=== PATIENT | male | born 1960 | race Caucasian/White ===

== ENCOUNTER 2021-08-07 03:55 | Emergency (ER) | payer MEDICAID ==
[2021-08-07 04:14] LABS: BASOPHIL 0.3 % (0-2); EOSINOPHIL 0.1 % (0-5); HCT 34.7 % (42.0-52.0); HGB 12.2 g/dl (13.2-18.0); LYMPHOCYTE 14.4 % (15-48); MCH 31.9 pg (25.0-31.0); MCHC 35.2 g/dL (32.0-36.0); MCV 90.8 fL (78.0-100.0); MONOCYTE 9.5 % (0-12); MPV 10.1 fL (6.0-9.5); NEUTROPHIL 75.3 % (41-80); NRBC 0; PLT 274 K/uL (150-400); RBC 3.82 M/uL (4.70-6.00); RDW 14.1 % (11.5-14.0); WBC 11.1 K/uL (4.0-10.5)
[2021-08-07 04:35] LABS: ALBUMIN 4.3 g/dL (3.4-5.0); ALKALINE PHOSHATASE 102 U/L (46-116); ALT 37 U/L (16-63); AST 43 U/L (15-37); BILIRUBIN - TOTAL 0.7 mg/dL (0.2-1.0); BUN 22 mg/dL (7-18); BUN/CREAT RATIO (CALC) 24.2 RATIO; C-REACTIVE PROTEIN <0.20 mg/dL (<=0.90); CHLORIDE 96 mmol/L (98-107); CO2 (BICARBONATE) 26 mmol/L (21-32); CREATININE 0.91 mg/dL (0.67-1.17); GLOBULIN (CALCULATION) 3.5 g/dL; GLUCOSE 87 mg/dL (74-106); POTASSIUM 3.6 mmol/L (3.5-5.1); TOTAL PROTEIN 7.8 g/dL (6.4-8.2)
[2021-08-07 04:40] LABS: PRO-BNP 196 pg/mL (<125)
[2021-08-07 04:52] LABS: INFLUENZA A NAA NEGATIVE (NEGATIVE)
[2021-08-07 04:56] LABS: CORONAVIRUS 2019 SARS-COV-2 POSITIVE (NEGATIVE)
[2021-08-07] MEDS ORDERED: TESSALON PERLE100 MG PO (06:55)
[2021-08-07] MEDS ORDERED: VENTOLIN HFA IN18 GM INH (06:55)
[2021-08-07] MEDS ORDERED: MEDROL 4MG DOSEP4 MG PO (06:55)
[2021-08-08] MEDS ORDERED: PREDNISONE 20MG20 MG PO (06:02)
[2021-08-08] MEDS ORDERED: AZITHROMYCIN250 MG PO (06:08)
== END 2021-08-07 08:10 | disposition home or self-care (01) ==
LOC: FER 03:55
PROVIDERS: Emergency Medicine Emergency Medical Services
DX: U07.1 COVID-19 (principal); K12.2 Cellulitis and abscess of mouth; F17.210 Nicotine dependence, cigarettes, uncomplicated
CPT/HCPCS: 36415; 36600; 70360; 71045; 80053; 82803; 83880; 84484; 85025; 86140; 93005; 94640; 94664; 96372; J1100; J2930; U0002

== ENCOUNTER 2021-08-07 21:21 | Emergency (ER) | payer OTHER ==
[~2021-08-07 21:21] MED LIST: MEDROL 4MG DOSEP4 MG PO; TESSALON PERLE100 MG PO; VENTOLIN HFA IN18 GM INH
[2021-08-08] MEDS ORDERED: PREDNISONE 20MG20 MG PO (06:02)
[2021-08-08] MEDS ORDERED: AZITHROMYCIN250 MG PO (06:08)
== END 2021-08-07 21:47 | disposition left against medical advice (07) ==
LOC: FER 21:21
DX: R22.1 Localized swelling, mass and lump, neck (principal); Z53.8 Procedure and treatment not carried out for other reasons
CPT/HCPCS: 82803

== ENCOUNTER 2021-08-08 01:23 | Emergency (ER) | payer MEDICAID ==
[2021-08-08] MEDS ORDERED: PREDNISONE 20MG20 MG PO (06:02)
[2021-08-08] MEDS ORDERED: AZITHROMYCIN250 MG PO (06:08)
== END 2021-08-08 06:32 | disposition home or self-care (01) ==
LOC: FER 01:23
DX: U07.1 COVID-19 (principal); I10 Essential (primary) hypertension; F17.210 Nicotine dependence, cigarettes, uncomplicated
CPT/HCPCS: 36600; 82803; 94640; 94664; J2930

== ENCOUNTER 2021-09-28 18:58 | Emergency (ER) | payer OTHER ==
[~2021-09-28 18:58] MED LIST changes: +AZITHROMYCIN250 MG PO; +PREDNISONE 20MG20 MG PO
[2021-09-28] MEDS ORDERED: TRIAMCINOLONE454 GM TOP (19:14)
== END 2021-09-28 19:10 | disposition home or self-care (01) ==
LOC: FER 18:58
DX: L30.9 Dermatitis, unspecified (principal); I10 Essential (primary) hypertension; F17.210 Nicotine dependence, cigarettes, uncomplicated; Z86.16 Personal history of COVID-19
CPT/HCPCS: 99282

== ENCOUNTER → 2022-02-04 | Day surgery (SDC) | payer OTHER ==
[~2022-02-04] VITALS: Ht 172.7 cm; Wt 59.0 kg
[~2022-02-04] MED LIST changes: +CENTRUM ADULT120 MCG PO; +PRINIVIL10 MG PO; +TRIAMCINOLONE454 GM TOP
[2022-02-04 10:42] LABS: HCT 35.9 % (42.0-52.0); HGB 12.2 g/dl (13.2-18.0); MCH 32.5 pg (25.0-31.0); MCV 95.7 fL (78.0-100.0); RBC 3.75 M/uL (4.70-6.00); RDW 15.9 % (11.5-14.0); WBC 9.1 K/uL (4.0-10.5)
[2022-02-04 11:01] LABS: BUN/CREAT RATIO (CALC) 39.3 RATIO; CREATININE 0.89 mg/dL (0.67-1.17); POTASSIUM 4.2 mmol/L (3.5-5.1)
== END | disposition home or self-care (01) ==
LOC: FAS 09:40
PROVIDERS: Anesthesiology
DX: M72.0 Palmar fascial fibromatosis [Dupuytren] (principal)
CPT/HCPCS: 36415; 80048; J0690; J2250; J2370; J2704; J2795; J3010; J7120